=== PATIENT | female | born 1965 | race Two or more races ===

== ENCOUNTER 2019-01-23 21:29 | Inpatient (IN) | payer OTHER ==
[~2019-01-23] VITALS: Ht 160 cm; Wt 48.5 kg
[2019-01-23] MEDS ORDERED: ACETAMINOPHEN 325 MG TAB PO ONE (22:30)
[2019-01-24] MEDS ORDERED: ONDANSETRON HCL 4 MG/2 ML VIAL IV ONE ×2 (04:15→07:30)
[2019-01-24] MEDS ORDERED: MORPHINE SULFATE 4 MG/ML SYR/VIAL IV ONE ×2 (04:15→07:30)
[2019-01-24] MEDS ORDERED: SODIUM CHLORIDE 0.9% 1,000 ML IV ONE ×2 (07:30)
[2019-01-24 07:57] LABS: Basophils # (auto) 0 uL; Basophils % (auto) 0.4 % (0.0-2.0); Eosinophils # (auto) 0 uL; Eosinophils % (auto) 0.1 % (0.0-7.0); Hematocrit 37.6 % (36.0-46.0); Hemoglobin 12.6 g/dL (12.2-16.2); Lymphocytes # (auto) 1.2 uL; Lymphocytes % (auto) 15.1 % (10.0-50.0); Mean Corpuscular Hemoglobin 29.3 pg (28.0-32.0); Mean Corpuscular Hgb Conc. 33.5 g/dL (32.0-36.0); Mean Corpuscular Volume 87.4 fL (80.0-100.0); Monocytes # (auto) 0.5 uL; Monocytes % (auto) 6.4 % (0.0-12.0); Platelet Count (auto) 168 10^3/uL (140-450); Red Blood Cells 4.31 10^6/uL (4.0-5.20); Red Cell Distribution Width 12.8 % (11.8-14.3); White Blood Cell 7.7 10^3/uL (4.4-10.8)
[2019-01-24 08:26] LABS: Albumin 3.6 g/dL (3.4-5.0); Calcium 8.3 mg/dL (8.5-10.1); Potassium 3.4 mmol/L (3.5-5.1)
[2019-01-24 08:34] LABS: BUN/Creatinine Ratio 36.2; Bilirubin, Total 0.6 mg/dL (0.2-1.0); Total Protein 6.7 g/dL (6.4-8.2)
[2019-01-24 08:50] LABS: INR 1.06 (0.9-1.15)
[2019-01-24] MEDS ORDERED: MORPHINE SULF INJ 2 MG/ML SYRINGE 1ML IV ONE (09:00)
[2019-01-24] MEDS ORDERED: DOCUSATE SOD 100 MG CAP PO PRN (09:15)
[2019-01-24] MEDS ORDERED: ONDANSETRON HCL 4 MG/2 ML VIAL IV PRN (09:15)
[2019-01-24] MEDS ORDERED: HYDROmorphone HCL 2 MG/ML VL IV PRN (09:15)
[2019-01-24] MEDS ORDERED: NITROGLYCERIN 0.4 MG SL TAB SL PRN (09:15)
[2019-01-24] MEDS ORDERED: MORPHINE SULF INJ 2 MG/ML SYRINGE 1ML IV PRN (09:15)
[2019-01-24] MEDS ORDERED: POTASSIUM EFFERVESENT TAB 25 MEQ PO ONE (09:45)
[2019-01-24] MEDS: PANTOPRAZOLE 40 MG TAB PO SCH (09:55)
[2019-01-24 10:30] VITALS: BP 104/64
--- NOTE | 2019-01-24 11:07 | NUR ---
MS admit from ER [facility] admitted to tele/MS after SBAR received. Patient oriented to ALECIA BRAND RN primary RN, unit, room, bed, and unit policies regarding patient care and visiting hours. Patient weighed by bedscale and encouraged to call if they need something. All questions and concerns addressed, patient verbalized understanding.
[2019-01-24 12:01] LABS: Urine Bacteria NONE SEEN /hpf (None Seen); Urine Blood Negative /uL (Negative); Urine Mucus FEW (None Seen); Urine Specific Gravity 1.022 (1.001-1.035); Urine WBC 19 /hpf (0 - 5)
[2019-01-24 13:00] VITALS: BP 98/47
[2019-01-24 17:00] VITALS: BP 95/59
[2019-01-24] MEDS: HYDROcodone-ACET 5/325MG TAB PO PRN (18:34)
--- NOTE | 2019-01-24 19:27 | NUR ---
Closing Shift Note Patient resting in bed. No distress noted. Will endorse care to the mold shifter RN.
--- NOTE | 2019-01-24 19:40 | NUR ---
Opening Shift Note Assumed care of patient, awake and alert. No S/S of distress/SOB or pain. Noted sling on left arm, family at bedside. Instructed on POC and to call for assist PRN, patient verbalized understanding, call light within reach, will continue to monitor for changes Q1hr and PRN.
[2019-01-24 22:07] VITALS: BP 94/46
[2019-01-25 05:08] VITALS: BP 98/58
[2019-01-25 07:01] LABS: Potassium 3.9 mmol/L (3.5-5.1)
[2019-01-25 07:07] LABS: BUN/Creatinine Ratio 45.2; Calcium 8.2 mg/dL (8.5-10.1)
[2019-01-25 08:00] VITALS: BP 100/61
--- NOTE | 2019-01-25 08:00 | NUR ---
Opening Shift Note Assumed care of patient, awake and alert. Patient states pain 6/10 on left shoulder, will administer pain medication as prescribed by MD. No s/s of SOB noted/stated. Patient instructed on POC and to call for assistance as needed. Bed in low position, locked and call light within reach. Son is at bedside. Will continue to monitor for changes Q1hr and PRN. Signed: 01/25/19 at 1042 by MUNA VENTURA SN <Co-Signature Required> Co-Signed: 01/25/19 at 1042 by Ruthy Samano RN
[2019-01-25 09:00] VITALS: BP 106/61
[2019-01-25] MEDS: PANTOPRAZOLE 40 MG TAB PO SCH (09:38)
[2019-01-25 13:00] VITALS: BP 91/55
[2019-01-25] MEDS: HYDROcodone-ACET 5/325MG TAB PO PRN (13:04)
[2019-01-25] MEDS ORDERED: DOCU100C8 PO (13:43)
[2019-01-25] MEDS ORDERED: PANT40T PO (13:43)
[2019-01-25] MEDS ORDERED: KETOROLAC TROMETH 30 MG/ML 1ML VIAL IV ONE (13:45)
--- NOTE | 2019-01-25 14:03 | NUR ---
Assessment Pt is a 53 yr old alert and oriented female. Pt lives with , 3 sons, sister and nephew. Pt is ambulatory and previously independent with ADL's, cooking and cleaning. Pt stated that her family members are willing to pitch in and help more while pt is recovering. Pt brought to the hospital due to falling and breaking humerus. Pt was employed but is applying for SDI during 2-3 month recovery. Pt received the form for POA. Pt will have a family member transport her home upon d/c. Pt stated that she has no current needs or concerns. Addendum: 01/25/19 at 1411 by KRYS NIETO Amended: Links added.
[2019-01-25 14:44] VITALS: BP 91/55
--- NOTE | 2019-01-25 15:58 | NUR ---
Discharge instructions given as ordered. Encourage to follow up with PMD as instructed. All questions and concerns addressed. Patient verbalized understanding. IV removed with catheter intact, pressure dressing applied. Patient taken to vehicle via wheelchair with all personal belongings, accompanied by staff and family member. No distress noted at time of departure. Signed: 01/25/19 at 1601 by MUNA VENTURA SN <Co-Signature Required> Co-Signed: 01/25/19 at 1601 by Ruthy Samano RN
== END 2019-01-25 15:58 | disposition home or self-care (01) | DRG 563 ==
LOC: ER 21:32 → OVERFLOW 21:33 → EAST 01-24 10:02
PROVIDERS: ADMIT Nurse Practitioner Acute Care; ATTEND Internal Medicine
DX: S42.212A Unspecified displaced fracture of surgical neck of left humerus, initial encounter for closed fracture (principal); E87.6 Hypokalemia; W01.0XXA Fall on same level from slipping, tripping and stumbling without subsequent striking against object, initial encounter; Y93.89 Activity, other specified; Y92.89 Other specified places as the place of occurrence of the external cause; Y99.8 Other external cause status
CPT/HCPCS: 36415; 71045; 73030; 73060; 73110; 73200; 80048; 80053; 81001; 81025; 85025; 85610; 85730; 96361; 96374; 96375; G0378; J1885; J2405

== ENCOUNTER → 2020-06-12 | Outpatient (CLI) | payer BC ==
[~2020-06-12] MED LIST: DOCU100C10 PO; PANT40T PO
[2020-06-12 09:33] LABS: Basophils # (auto) 0 10 ^3/uL (0-0.2); Basophils % (auto) 0.5 % (0.0-2.0); Eosinophils # (auto) 0.1 10 ^3/uL (0-0.8); Eosinophils % (auto) 2.1 % (0.0-7.0); Hematocrit 39.3 % (36.0-46.0); Hemoglobin 13.3 g/dL (12.2-16.2); Lymphocytes # (auto) 1.4 10 ^3/uL (0.4-5.4); Lymphocytes % (auto) 37.7 % (10.0-50.0); Mean Corpuscular Hemoglobin 29.7 pg (28.0-32.0); Mean Corpuscular Hgb Conc. 33.9 g/dL (32.0-36.0); Mean Corpuscular Volume 87.7 fL (80.0-100.0); Monocytes # (auto) 0.2 10 ^3/uL (0-1.3); Monocytes % (auto) 5.7 % (0.0-12.0); Nucleated Red Blood Cells % 0.1 %; Platelet Count (auto) 173 10^3/uL (140-450); Red Blood Cells 4.48 10^6/uL (4.0-5.20); Red Cell Distribution Width 13.3 % (11.8-14.3); White Blood Cell 3.8 10^3/uL (4.4-10.8)
[2020-06-12 10:08] LABS: Albumin 3.9 g/dL (3.4-5.0); Calcium 9.1 mg/dL (8.5-10.1); Potassium 4.1 mmol/L (3.5-5.1)
[2020-06-12 10:13] LABS: BUN/Creatinine Ratio 38.6; Bilirubin, Total 0.5 mg/dL (0.2-1.0)
== END | disposition home or self-care (01) ==
LOC: LAB 09:04
PROVIDERS: ATTEND Physician Assistant
DX: Z00.00 Encounter for general adult medical examination without abnormal findings (principal); D64.9 Anemia, unspecified; E55.9 Vitamin D deficiency, unspecified; E78.5 Hyperlipidemia, unspecified
CPT/HCPCS: 36415; 80053; 80061; 82306; 85025